=== PATIENT | male | born 1970 ===

== ENCOUNTER 2023-08-11 06:00 | Day surgery (SDC) | payer OTHER ==
[2023-08-06 10:31] LABS: HEMATOCRIT 46.3 % (39.0-48.0); HEMOGLOBIN 16.4 g/dL (13-16.00); MEAN CELL VOLUME 91.6 fL (80.0-100.00); MEAN CORPUSCULAR HEMOGLOBIN 32.4 pg (27.00-32.0); MEAN CORPUSCULAR HGB CONC 35.4 g/dl (32.0-36.0); PLATELET COUNT 205 K/uL (150-450); RED BLOOD COUNT 5.05 M/uL (4.00-6.00); RED CELL DISTRIBUTION WIDTH 13.1 % (11.5-14.5)
[2023-08-06 10:40] LABS: PH,URINE 7.5 (5.0-8.0); URINE APPEARANCE Clear; URINE BILIRRUBIN Negative (NEGATIVE); URINE BLOOD Negative; URINE COLOR Yellow; URINE GLUCOSE Negative (NEGATIVE); URINE LEUKOCYTE Negative; URINE NITRATE Negative; URINE PROTEIN Negative (NEGATIVE); URINE UROBILINOGEN 0.2 E.U./dl
[2023-08-06 10:45] LABS: URINE RBC 3.4 uL (0.0-20.8)
[2023-08-06 11:02] LABS: CALCIUM 9.6 mg/dL (8.5-10.1); CREATININE SERUM 1.01 mg/dL (0.70-1.30); GFR 76.69; POTASSIUM 4.5 mEq/L (3.5-5.1)
[2023-08-06 11:13] LABS: PROTHROMBIN TIME 10.8 SECONDS (9.0-11.5)
[2023-08-06 11:14] LABS: INR 1.03; PARTIAL THROMBOPLASTIN TIME 29.2 SECONDS (22.0-34.0)
[2023-08-06 11:17] LABS: URINE BACTERIA 1.2 uL (0.0-1933); URINE EPITHELIAL CELLS 0.1 uL (0.0-38.8); URINE WBC 0.2 uL (0.0-23.2)
[2023-08-11] MEDS ORDERED: ENOXAPARIN SODIUM 40 MG/0.4 ML SYRINGE SUBCUTANEO ONE ×2 (08:42→11:00)
[2023-08-11] MEDS ORDERED: METRONIDAZOLE/SODIUM CHLORIDE 500 MG/100 ML PIGGYBACK IV ONE (08:42)
[2023-08-11] MEDS ORDERED: CEFTRIAXONE SODIUM 2,000 MG VIAL ONE (08:42)
[2023-08-11] MEDS ORDERED: BUPIVACAINE HCL/PF 0.5% 30ML ML ONE (10:13)
[2023-08-11] MEDS ORDERED: BUPIVACAINE HCL 30 ML VIAL IJ ONE (11:00)
[2023-08-11] MEDS ORDERED: CEFTRIAXONE SODIUM 2,000 MG VIAL IV ONE (11:00)
[2023-08-11] MEDS ORDERED: PERCOCET 5-3251 EACH PO (12:16)
[2023-08-11] MEDS ORDERED: CELEBREX200MG PO (12:16)
[2023-08-11] MEDS ORDERED: COLACE100 MG PO (12:16)
[2023-08-11] MEDS ORDERED: NEURONTIN300 MG PO (12:16)
[2023-08-12] MEDS ORDERED: METRONIDAZOLE/SODIUM CHLORIDE 500 MG/100 ML PIGGYBACK IV SCH (08:15)
== END 2023-08-11 15:40 | disposition home or self-care (01) ==
LOC: CIR.AMB 06:00
PROVIDERS: ATTEND Surgery
DX: K40.90 Unilateral inguinal hernia, without obstruction or gangrene, not specified as recurrent (principal); Z20.822 Contact with and (suspected) exposure to COVID-19
CPT/HCPCS: 49650; C1781